=== PATIENT | female | born 1960 | race Hispanic/Latino ===

== ENCOUNTER 2018-10-25 09:41 | Inpatient (IN) | payer MEDICARE ==
[2018-10-25] MEDS ORDERED: NACL 0.9% 1000 ML IV ONE (10:13)
[2018-10-25] MEDS ORDERED: ATROVENT IH ONE (10:16)
[2018-10-25] MEDS ORDERED: PROVENTIL IH ONE (10:16)
--- NOTE | 2018-10-25 10:21 | Emergency Department Report ---
ED Shortness of Breath HPI - General Chief Complaint: Dyspnea/Respdistress Stated Complaint: SOB Time Seen by Provider: 10/25/18 10:05 Source: patient, family, EMS Mode of arrival: Stretcher Limitations: Physical Limitation - History of Present Illness Initial Comments: Patient is a 58 years old female with history of multiple sclerosis. Patient brought to the emergency room via EMS accompanied by her with a chief complaint of shortness of breath and cough for the last 6 days. Patient received albuterol and Solu-Medrol by EMS. Patient stated that she had similar symptoms last year when she was admitted to the hospital and had a diagnosis of pneumonia and COPD but she did not follow-up with a souvenir street vendor after that. Patient denied any fever or chills. Patient initial oxygen saturation was 88% on 2 L. MD Complaint: shortness of breath, cough - Related Data Home Medications Medication Instructions Recorded Confirmed Last Taken ALPRAZolam [Xanax TAB] 0.5 mg PO TID PRN 06/03/15 06/28/17 06/28/17 Amitriptyline [Elavil] 150 mg PO QHS 06/03/15 06/28/17 06/27/17 Atorvastatin Calcium [Lipitor] 80 mg PO DAILY 06/28/17 06/28/17 06/27/17 Baclofen [Lioresal] 20 mg PO TID 06/28/17 06/28/17 06/28/17 Desmopressin Acetate [Ddavp] 0.2 mg PO HS 06/28/17 06/28/17 06/27/17 Estradiol 0.5 mg PO DAILY 06/28/17 06/28/17 06/28/17 Gabapentin [Neurontin] 600 mg PO QID 06/28/17 06/28/17 06/28/17 HYDROcodone/APAP 5-325 [[place] 1 each PO BID PRN 06/28/17 06/28/17 Unknown 5-325 mg TAB] Olopatadine HCl [Pataday 0.2%] 1 drop OU DAILY 06/28/17 06/28/17 Unknown Promethazine [Phenergan] 25 mg PO TID PRN 06/28/17 06/28/17 Unknown QUEtiapine [SEROquel] 25 mg PO BID 06/28/17 06/28/17 06/28/17 Teriflunomide [Aubagio] 14 mg PO HS 06/28/17 06/28/17 06/27/17 medroxyPROGESTERone ACETATE 2.5 mg PO DAILY 06/28/17 06/28/17 06/28/17 [Provera] Previous Rx's Medication Instructions Recorded Last Taken Type Aspirin [Aspirin BABY CHEW TAB] 81 mg PO QDAY #30 tab.chew 06/05/15 06/28/17 Rx Carvedilol [Coreg] 3.125 mg PO BID #60 tablet 06/05/15 06/28/17 Rx Ticagrelor [Brilinta] 90 mg PO BID #60 tablet 06/05/15 06/28/17 Rx Prednisone [predniSONE 10 mg 10 mg PO .TAPER #1 tab.ds.pk 07/05/17 Unknown Rx (6-Day Pack, 21 Tabs)] Allergies Allergy/AdvReac Type Severity Reaction Status Date / Time ciprofloxacin Allergy Itching Verified 10/25/18 09:52 Penicillins Allergy Unknown Verified 06/03/15 21:45 oxycodone AdvReac Itching Verified 06/03/15 21:45 sulfur dioxide AdvReac Itching Verified 06/03/15 21:47 ED Review of Systems ROS: Stated complaint: SOB Other details as noted in HPI Comment: All other systems reviewed and negative Constitutional: denies: chills, fever Respiratory: cough, orthopnea, shortness of breath, SOB with exertion, SOB at rest, wheezing. denies: stridor Cardiovascular: denies: chest pain, palpitations Gastrointestinal: denies: abdominal pain, nausea, vomiting Musculoskeletal: denies: back pain Neurological: denies: headache, weakness ED Past Medical Hx - Past Medical History Previous Medical History?: Yes Hx Hypertension: No Hx Heart Attack/AMI: Yes (cardiac stent x2) Hx Congestive Heart Failure: No Hx Diabetes: No Hx Deep Vein Thrombosis: No Hx Pulmonary Embolism: No Hx Sickle Cell Disease: No Hx Arthritis: No Hx Seizures: No Hx Asthma: No Hx COPD: No Hx Tuberculosis: No Hx Dementia: No Hx HIV: No Additional medical history: MS - Surgical History Past Surgical History?: Yes Hx Coronary Stent: No Hx Open Heart Surgery: No Hx Pacemaker: No Hx Internal Defibrillator: No Hx Cholecystectomy: No Hx Appendectomy: No Hx Breast Surgery: No Additional Surgical History: breast implant; cardiac cath - Social History Smoking Status: Current Every Day Smoker Substance Use Type: None - Medications Home Medications: Home Medications Medication Instructions Recorded Confirmed Last Taken Type ALPRAZolam [Xanax TAB] 0.5 mg PO TID PRN 06/03/15 06/28/17 06/28/17 History Amitriptyline [Elavil] 150 mg PO QHS 06/03/15 06/28/17 06/27/17 History Aspirin [Aspirin BABY CHEW TAB] 81 mg PO QDAY #30 tab.chew 06/05/15 06/28/17 06/28/17 Rx Carvedilol [Coreg] 3.125 mg PO BID #60 tablet 06/05/15 06/28/17 06/28/17 Rx Ticagrelor [Brilinta] 90 mg PO BID #60 tablet 06/05/15 06/28/17 06/28/17 Rx Atorvastatin Calcium [Lipitor] 80 mg PO DAILY 06/28/17 06/28/17 06/27/17 History Baclofen [Lioresal] 20 mg PO TID 06/28/17 06/28/17 06/28/17 History Desmopressin Acetate [Ddavp] 0.2 mg PO HS 06/28/17 06/28/17 06/27/17 History Estradiol 0.5 mg PO DAILY 06/28/17 06/28/17 06/28/17 History Gabapentin [Neurontin] 600 mg PO QID 06/28/17 06/28/17 06/28/17 History HYDROcodone/APAP 5-325 [[place] 1 each PO BID PRN 06/28/17 06/28/17 Unknown History 5-325 mg TAB] Olopatadine HCl [Pataday 0.2%] 1 drop OU DAILY 06/28/17 06/28/17 Unknown History Promethazine [Phenergan] 25 mg PO TID PRN 06/28/17 06/28/17 Unknown History QUEtiapine [SEROquel] 25 mg PO BID 06/28/17 06/28/17 06/28/17 History Teriflunomide [Aubagio] 14 mg PO HS 06/28/17 06/28/17 06/27/17 History medroxyPROGESTERone ACETATE 2.5 mg PO DAILY 06/28/17 06/28/17 06/28/17 History [Provera] Prednisone [predniSONE 10 mg 10 mg PO .TAPER #1 tab.ds.pk 07/05/17 Unknown Rx (6-Day Pack, 21 Tabs)] ED Physical Exam - General Limitations: Physical Limitation General appearance: alert, in no apparent distress - Head Head exam: Present: atraumatic, normocephalic, normal inspection - Eye Eye exam: Present: normal appearance - ENT ENT exam: Present: normal exam, normal orophraynx, mucous membranes dry - Neck Neck exam: Present: normal inspection, full ROM. Absent: tenderness, meningismus, lymphadenopathy, thyromegaly - Respiratory Respiratory exam: Present: respiratory distress, wheezes, rales, rhonchi, decreased breath sounds, prolonged expiratory. Absent: stridor, accessory muscle use - Cardiovascular Cardiovascular Exam: Present: tachycardia - GI/Abdominal GI/Abdominal exam: Present: soft, normal bowel sounds. Absent: distended, tenderness, guarding, rebound, rigid, organomegaly, mass, bruit, pulsatile mass, hernia - Extremities Exam Extremities exam: Present: normal inspection, full ROM, normal capillary refill. Absent: pedal edema, calf tenderness - Back Exam Back exam: Present: normal inspection, full ROM. Absent: CVA tenderness (R), CVA tenderness (L), muscle spasm, paraspinal tenderness, vertebral tenderness - Neurological Exam Neurological exam: Present: alert, oriented X3, CN II-XII intact, motor sensory deficit (chronic due to multiple sclerosis) - Psychiatric Psychiatric exam: Present: normal mood - Skin Skin exam: Present: warm, intact, normal color ED Course Vital Signs 10/25/18 10/25/18 10/25/18 09:55 10:00 10:02 Temperature 98.2 F Pulse Rate 106 H 106 H 106 H Respiratory 27 H 26 H 27 H Rate Blood Pressure 100/58 Blood Pressure 102/74 [Left] O2 Sat by Pulse 89 90 Oximetry 10/25/18 10/25/18 10/25/18 10:03 10:30 11:00 Temperature Pulse Rate 100 H 95 H Respiratory 27 H 23 22 Rate Blood Pressure 86/59 86/59 Blood Pressure [Left] O2 Sat by Pulse 90 83 L 91 Oximetry ED Medical Decision Making - Lab Data Result diagrams: 10/25/18 10:22 09/10/19 10:22 - EKG Data -: EKG Interpreted by Me EKG shows normal: sinus rhythm Rate: normal - EKG Data Interpretation: no acute changes - Radiology Data Radiology results: report reviewed - Medical Decision Making Patient is a 58 years old female with history of multiple sclerosis. Patient brought to the emergency room via EMS accompanied by her with a chief complaint of shortness of breath and cough for the last 6 days. Patient received albuterol and Solu-Medrol by EMS. Patient stated that she had similar symptoms last year when she was admitted to the hospital and had a diagnosis of pneumonia and COPD but she did not follow-up with a souvenir street vendor after that. Patient denied any fever or chills. Patient initial oxygen saturation was 88% on 2 L. Patient started on BiPAP. Patient stated that she is feeling better. Labs reviewed and is unremarkable. Chest x-ray show pleural effusion. I discussed the patient was , he agreed to admit the patient to medical service. Critical Care Time: Yes Critical care time in (mins) excluding proc time.: 30 Critical care attestation.: If time is entered above; I have spent that time in minutes in the direct care of this critically ill patient, excluding procedure time. ED Disposition Clinical Impression: Multiple sclerosis, COPD with acute exacerbation, Bronchitis, Acute respiratory failure Disposition: -09 OP ADMIT IP TO THIS HOSP Is pt being admited?: Yes Condition: Stable Instructions: Chronic Obstructive Pulmonary Disease (ED), Chronic Bronchitis (ED)
[2018-10-25] MEDS ORDERED: NACL 0.9% 100 ML ONE (10:31)
[2018-10-25] MEDS: MAXIPIME/NS 1 GM/100 ML 1 GM/100 ML BAG IV SCH ×3 (10:43→19:45)
--- NOTE | 2018-10-25 10:51 | XRay Report ---
CHEST 1 VIEW INDICATION: SOB,COUGH. COMPARISON: 07/02/2017 FINDINGS: Support devices: None. Heart: Within normal limits. Lungs/Pleura: Small to medium right pleural effusion and compressive atelectasis at the right lung ba se is identified. The remainder the lungs are generally clear. No pneumothorax. Additional findings: None. IMPRESSION: Small to medium right pleural effusion. Signer Name: Toby Del Rio Jr, MD Signed: 10/25/2018 10:46 AM Workstation Name: [id number]
[2018-10-25 10:57] LABS: Basophils % (Auto) 0.2 % (0.0-1.8); Eosinophils # (Auto) 0.1 K/mm3 (0.0-0.4); Eosinophils % (Auto) 1.6 % (0.0-4.3); Hematocrit 36.3 % (30.3-42.9); Hemoglobin 12.5 gm/dl (10.1-14.3); Lymphocytes # (Auto) 1.6 K/mm3 (1.2-5.4); Lymphocytes % (Auto) 18.9 % (13.4-35.0); Mean Corpuscular HGB Conc 34 % (30-34); Mean Corpuscular Volume 90 fl (79-97); Monocytes # (Auto) 1.2 K/mm3 (0.0-0.8); Monocytes % (Auto) 14.2 % (0.0-7.3); Platelet Count 274 K/mm3 (140-440); Red Blood Count 4.05 M/mm3 (3.65-5.03); Red Cell Distribution Width 15.7 % (13.2-15.2)
[2018-10-25 11:16] LABS: Alanine Aminotransferase 15 units/L (7-56); BUN/Creatinine Ratio 28; Blood Urea Nitrogen 14 mg/dL (7-17); Calcium 8.6 mg/dL (8.4-10.2); Hemolysis Index 6
--- NOTE | 2018-10-25 16:13 | History and Physical Report ---
History of Present Illness Date of examination: 10/25/18 Date of admission: 10/25/18 11:40 Chief complaint: Increased shortness of breath for 6 days History of present illness: 58-year-old female with history of generalized anxiety disorder, depression, hypertension, which is a insufficiency, chronic pain comes in for increasing shortness of breath for the last 6 days. Increased wheezing. Patient not responding to nebulizer treatments at home. Cough or retro-firm mucoid to yellow sputum. No fever or chills. Patient had similar symptoms in June 2017. Patient still smokes a half a pack a day. Cough productive of yellow sputum Past Medical History Previous Medical History?: Yes Htn Heart Attack/AMI: Yes (cardiac stent x2) CAD Multiple Sclerosis ROBBIE HLD PN Bipolar Surgical History Past Surgical History?: Yes Breast implant; cardiac cath Social History Smoking Status: Current Every Day Smoker Substance Use Type: None Family History Htn Medications Home Medications: Home Medications Medication Instructions Recorded Confirmed Last Taken Type ALPRAZolam [Xanax TAB] 0.5 mg PO TID PRN 06/03/15 06/28/17 06/28/17 History Amitriptyline [Elavil] 150 mg PO QHS 06/03/15 06/28/17 06/27/17 History Aspirin [Aspirin BABY CHEW TAB] 81 mg PO QDAY #30 tab.chew 06/05/15 06/28/17 06/28/17 Rx Carvedilol [Coreg] 3.125 mg PO BID #60 tablet 06/05/15 06/28/17 06/28/17 Rx Ticagrelor [Brilinta] 90 mg PO BID #60 tablet 06/05/15 06/28/17 06/28/17 Rx Atorvastatin Calcium [Lipitor] 80 mg PO DAILY 06/28/17 06/28/17 06/27/17 History Baclofen [Lioresal] 20 mg PO TID 06/28/17 06/28/17 06/28/17 History Desmopressin Acetate [Ddavp] 0.2 mg PO HS 06/28/17 06/28/17 06/27/17 History Estradiol 0.5 mg PO DAILY 06/28/17 06/28/17 06/28/17 History Gabapentin [Neurontin] 600 mg PO QID 06/28/17 06/28/17 06/28/17 History HYDROcodone/APAP 5-325 [[place] 1 each PO BID PRN 06/28/17 06/28/17 Unknown History 5-325 mg TAB] Olopatadine HCl [Pataday 0.2%] 1 drop OU DAILY 06/28/17 06/28/17 Unknown History Promethazine [Phenergan] 25 mg PO TID PRN 06/28/17 06/28/17 Unknown History QUEtiapine [SEROquel] 25 mg PO BID 06/28/17 06/28/17 06/28/17 History Teriflunomide [Aubagio] 14 mg PO HS 06/28/17 06/28/17 06/27/17 History medroxyPROGESTERone ACETATE 2.5 mg PO DAILY 06/28/17 06/28/17 06/28/17 History [Provera] Prednisone [predniSONE 10 mg 10 mg PO .TAPER #1 tab.ds.pk 07/05/17 Unknown Rx (6-Day Pack, 21 Tabs)] Medications and Allergies Allergies Allergy/AdvReac Type Severity Reaction Status Date / Time ciprofloxacin Allergy Itching Verified 10/25/18 09:52 Penicillins Allergy Unknown Verified 06/03/15 21:45 oxycodone AdvReac Itching Verified 06/03/15 21:45 sulfur dioxide AdvReac Itching Verified 06/03/15 21:47 Home Medications Medication Instructions Recorded Confirmed Last Taken Type ALPRAZolam [Xanax TAB] 0.5 mg PO TID PRN 06/03/15 06/28/17 06/28/17 History Amitriptyline [Elavil] 150 mg PO QHS 06/03/15 06/28/17 06/27/17 History Aspirin [Aspirin BABY CHEW TAB] 81 mg PO QDAY #30 tab.chew 06/05/15 06/28/17 06/28/17 Rx Carvedilol [Coreg] 3.125 mg PO BID #60 tablet 06/05/15 06/28/17 06/28/17 Rx Ticagrelor [Brilinta] 90 mg PO BID #60 tablet 06/05/15 06/28/17 06/28/17 Rx Atorvastatin Calcium [Lipitor] 80 mg PO DAILY 06/28/17 06/28/17 06/27/17 History Baclofen [Lioresal] 20 mg PO TID 06/28/17 06/28/17 06/28/17 History Desmopressin Acetate [Ddavp] 0.2 mg PO HS 06/28/17 06/28/17 06/27/17 History Estradiol 0.5 mg PO DAILY 06/28/17 06/28/17 06/28/17 History Gabapentin [Neurontin] 600 mg PO QID 06/28/17 06/28/17 06/28/17 History HYDROcodone/APAP 5-325 [[place] 1 each PO BID PRN 06/28/17 06/28/17 Unknown History 5-325 mg TAB] Olopatadine HCl [[place] 0.2%] 1 drop OU DAILY 06/28/17 06/28/17 Unknown History Promethazine [Phenergan] 25 mg PO TID PRN 06/28/17 06/28/17 Unknown History QUEtiapine [SEROquel] 25 mg PO BID 06/28/17 06/28/17 06/28/17 History Teriflunomide [Aubagio] 14 mg PO HS 06/28/17 06/28/17 06/27/17 History medroxyPROGESTERone ACETATE 2.5 mg PO DAILY 06/28/17 06/28/17 06/28/17 History [Provera] Prednisone [predniSONE 10 mg 10 mg PO .TAPER #1 tab.ds.pk 07/05/17 Unknown Rx (6-Day Pack, 21 Tabs)] Active Meds: Active Medications Cefepime HCl (Maxipime/Ns 1 Gm/100 Ml) 1 gm in 100 mls @ 200 mls/hr IV Q8H [facility]; Protocol Last Admin: 10/25/18 15:38 Dose: Not Given Documented by: Review of Systems All systems: negative Constitutional: no weight loss, no weight gain, no fever, no chills, no anorexia, no fatigue Ears, nose, mouth and throat: no ear pain, no ear discharge, no tinnitis, no decreased hearing, no nose pain, no nasal congestion Breasts: deferred Cardiovascular: shortness of breath, dyspnea on exertion, no chest pain, no orthopnea Respiratory: cough, cough with sputum, shortness of breath, dyspnea on exertion, congestion, wheezing Gastrointestinal: no abdominal pain, no nausea, no vomiting, no diarrhea, no constipation, no change in bowel habits, no hematemesis, no coffee ground emesis Genitourinary Female: no dysuria, no urinary frequency, no urgency Rectal: no pain Musculoskeletal: no neck stiffness, no neck pain, no shooting arm pain, no arm numbness/tingling, no low back pain, no shooting leg pain, no leg numbness/tingling, no redness of joints Integumentary: no rash, no pruritis, no redness, no sores, no wounds Neurological: no head injury, no seizures, no syncope Psychiatric: no anxiety, no memory loss Endocrine: no cold intolerance, no heat intolerance, no polyphagia, no excessive thirst Hematologic/Lymphatic: no easy bruising, no easy bleeding Allergic/Immunologic: no urticaria, no allergic rhinitis, no wheezing Exam - Physical Exam Narrative exam: Patient lying in bed uncomfortable - Constitutional Vitals: Temp Pulse Resp BP Pulse Ox 98.2 F 79 18 109/74 92 10/25/18 10:02 10/25/18 15:01 10/25/18 15:01 10/25/18 15:01 10/25/18 15:01 General appearance: Present: severe distress - EENT Eyes: Present: PERRL ENT: hearing intact, clear oral mucosa - Neck Neck: Present: supple, normal ROM - Respiratory Respiratory effort: normal Respiratory: bilateral: CTA, diminished, rhonchi, wheezing - Cardiovascular Heart rate: 78 Rhythm: regular Heart Sounds: Present: S1 & S2. Absent: rub, click - Extremities Extremities: no ischemia, pulses intact, pulses symmetrical Extremity abnormal: cyanosis Peripheral Pulses: within normal limits - Abdominal General gastrointestinal: Present: soft, non-tender, non-distended, normal bowel sounds Female genitourinary: Present: normal - Rectal Rectal Exam: deferred - Integumentary Integumentary: Present: clear, warm, dry - Musculoskeletal Musculoskeletal: gait normal, strength equal bilaterally - Psychiatric Psychiatric: appropriate mood/affect, intact judgment & insight - Neurologic Neurologic: CNII-XII intact, moves all extremities - Allied Health Allied health notes reviewed: nursing, case management Results - Labs CBC & Chem 7: 10/25/18 10:22 10/25/18 10:22 Labs: Laboratory Last Values WBC 8.3 K/mm3 (4.5-11.0) 10/25/18 10:22 RBC 4.05 M/mm3 (3.65-5.03) 10/25/18 10:22 Hgb 12.5 gm/dl (10.1-14.3) 10/25/18 10: Hct 36.3 % (30.3-42.9) 10/25/18 10: MCV 90 fl (79-97) 10/25/18 10: MCH 31 pg (28-32) 10/25/18 10: MCHC 34 % (30-34) 10/25/18 10:22 RDW 15.7 % (13.2-15.2) H 10/25/18 10:22 Plt Count 274 K/mm3 (140-440) 10/25/18 10: Lymph % (Auto) 18.9 % (13.4-35.0) 10/25/18 10: [place] % (Auto) 14.2 % (0.0-7.3) H 10/25/18 10:22 Eos % (Auto) 1.6 % (0.0-4.3) 10/25/18 10:22 Baso % (Auto) 0.2 % (0.0-1.8) 10/25/18 10: Lymph # 1.6 K/mm3 (1.2-5.4) 10/25/18 10: [place] # 1.2 K/mm3 (0.0-0.8) H 10/25/18 10:22 Eos # 0.1 K/mm3 (0.0-0.4) 10/25/18 10: Baso # 0.0 K/mm3 (0.0-0.1) 10/25/18 10:22 Seg Neutrophils % 65.1 % (40.0-70.0) 10/25/18 10: Seg Neutrophils # 5.4 K/mm3 (1.8-7.7) 10/25/18 10:22 POC ABG pH 7.278 (7.35-7.45) L 10/25/18 10:59 POC ABG pCO2 45.4 (35-45) H 10/25/18 10:59 POC ABG pO2 89 (80-105) 10/25/18 10:59 POC ABG HCO3 21.2 (22-26 mml/L) 10/25/18 10:59 POC ABG Total CO2 23 (23-27mmol/L) 10/25/18 10:59 POC ABG O2 Sat 96 10/25/18 10:59 POC ABG Base Excess -6 ((-2) - (+3)mmol/L) 10/25/18 10:59 50 % 10/25/18 10:59 Sodium 131 mmol/L (137-145) L 10/25/18 10:22 Potassium 3.6 mmol/L (3.6-5.0) 10/25/18 10:22 Chloride 96.5 mmol/L (98-107) L 10/25/18 10:22 Carbon Dioxide 22 mmol/L (22-30) 10/25/18 10:22 16 mmol/L 10/25/18 10:22 BUN 14 mg/dL (7-17) 10/25/18 10:22 0.5 mg/dL (0.7-1.2) L 10/25/18 10:22 Estimated GFR > 60 ml/min 10/25/18 10:22 28 % 10/25/18 10:22 Glucose 134 mg/dL (65-100) H 10/25/18 10:22 Lactic Acid 1.50 mmol/L (0.7-2.0) 10/25/18 10:22 Calcium 8.6 mg/dL (8.4-10.2) 10/25/18 10:22 0.60 mg/dL (0.1-1.2) 10/25/18 10:22 AST 18 units/L (5-40) 10/25/18 10:22 ALT 15 units/L (7-56) 10/25/18 10:22 62 units/L (35-129) 10/25/18 10:22 < 0.010 ng/mL (0.00-0.029) 10/25/18 10:22 < 0.010 ng/mL (0.00-0.029) 10/25/18 10:22 NT-Pro-B Natriuret Pep 100.2 pg/mL (0-900) 10/25/18 10:22 5.3 g/dL (6.3-8.2) L 10/25/18 10:22 3.0 g/dL (3.9-5) L 10/25/18 10:22 1.3 % 10/25/18 10:22 Short CBC 10/25/18 Range/Units 10:22 WBC 8.3 (4.5-11.0) K/mm3 Hgb 12.5 (10.1-14.3) gm/dl Hct 36.3 (30.3-42.9) % Plt Count 274 (140-440) K/mm3 [facility] 10/25/18 10:22 Sodium 131 L Potassium 3.6 Chloride 96.5 L Carbon Dioxide 22 BUN 14 Creatinine 0.5 L Glucose 134 H Calcium 8.6 Cardiac Enzymes 10/25/18 10/25/18 Range/Units 10:22 10:22 Troponin T < 0.010 < 0.010 (0.00-0.029) ng/mL Liver Function 10/25/18 Range/Units 10:22 Total Bilirubin 0.60 (0.1-1.2) mg/dL AST 18 (5-40) units/L ALT 15 (7-56) units/L Alkaline Phosphatase 62 (35-129) units/L Albumin 3.0 L (3.9-5) g/dL Short CBC 10/25/18 Range/Units 10:22 WBC 8.3 (4.5-11.0) K/mm3 Hgb 12.5 (10.1-14.3) gm/dl Hct 36.3 (30.3-42.9) % Plt Count 274 (140-440) K/mm3 [facility] 10/25/18 10:22 Sodium 131 L Potassium 3.6 Chloride 96.5 L Carbon Dioxide 22 BUN 14 Creatinine 0.5 L Glucose 134 H Calcium 8.6 Cardiac Enzymes 10/25/18 10/25/18 Range/Units 10:22 10:22 Troponin T < 0.010 < 0.010 (0.00-0.029) ng/mL Liver Function 10/25/18 Range/Units 10:22 Total Bilirubin 0.60 (0.1-1.2) mg/dL AST 18 (5-40) units/L ALT 15 (7-56) units/L Alkaline Phosphatase 62 (35-129) units/L Albumin 3.0 L (3.9-5) g/dL - Imaging and Cardiology EKG: report reviewed (normal sinus rhythm heart rate of 96/m no acute ST-T wave changes) Chest x-ray: report reviewed Imaging and Cardiology: Chest x-ray Small to medium right pleural effusion Assessment and Plan Advance Directives: Yes (full code) VTE prophylaxis?: Chemical Plan of care discussed with patient/family: Yes - Patient Problems (1) Acute respiratory failure with hypoxia Current Visit: Yes Status: Acute Plan to address problem: Patient was hypoxic at the time of admission which persisted ABG done Continue IV Solu-Medrol IV antibiotics and duo nebulizers around the clock BiPAP if necessary Intubation if necessary (2) COPD with acute exacerbation Current Visit: Yes Status: Acute Plan to address problem: Continue IV antibiotics, IV Solu-Medrol and nebulizer treatments [id number] and when necessary. BiPAP as necessary Intubation if necessary Patient sats are better of emergency room admission (3) Hypertension Current Visit: Yes Status: Chronic Qualifiers: Hypertension type: essential hypertension Qualified Code(s): I10 - Essential (primary) hypertension Plan to address problem: well-controlled Continue Coreg 3.125 twice a day and other blood pressure medications (4) Depression Current Visit: Yes Status: Chronic Qualifiers: Depression Type: unspecified Qualified Code(s): F32.9 - Major depressive disorder, single episode, unspecified Plan to address problem: Continue amitriptyline Quetiapine (5) Peripheral neuropathy Current Visit: Yes Status: Chronic Qualifiers: Peripheral neuropathy type: polyneuropathy, unspecified Qualified Code(s): G62.9 - Polyneuropathy, unspecified Plan to address problem: Continue gabapentin (6) Coronary artery disease Current Visit: Yes Status: Chronic Qualifiers: Coronary Disease-Associated Artery/Lesion type: [place] artery [place] vs. transplanted heart: [place] heart Associated angina: without angina Qualified Code(s): I25.10 - Atherosclerotic heart disease of [place] coronary artery without angina pectoris Plan to address problem: Cot iBrilinta 90 mg twice a day (7) Hyperlipidemia Current Visit: Yes Status: Chronic Qualifiers: Hyperlipidemia type: mixed hyperlipidemia Qualified Code(s): E78.2 - Mixed hyperlipidemia Plan to address problem: Continue statins (8) Multiple sclerosis Current Visit: Yes Status: Chronic Plan to address problem: Patient not on any medications for multiple sclerosis We'll get physical therapy involved (9) DVT prophylaxis Current Visit: No Status: Acute Plan to address problem: On Lovenox and GI prophylaxis
[2018-10-25] MEDS ORDERED: PHENERGAN PO PRN (16:43)
[2018-10-25] MEDS ORDERED: ESTRADIOL 0.5 MG PO SCH (16:45)
[2018-10-25] MEDS ORDERED: NON-FORMULARY (Atorvastatin Calcium [Lipitor] 40 MG) PO SCH (16:45)
[2018-10-25] MEDS ORDERED: ZOFRAN IV PRN (16:46)
[2018-10-25] MEDS ORDERED: PROVENTIL IH PRN (16:49)
[2018-10-25] MEDS ORDERED: SOLU-Medrol IV SCH (17:00)
[2018-10-25] MEDS ORDERED: NON-FORMULARY (Gabapentin [Neurontin] 600 MG) PO SCH (18:00)
[2018-10-25] MEDS: BABY ASPIRIN PO SCH (18:19)
[2018-10-25] MEDS: SOLU-Medrol IV SCH (18:28)
[2018-10-25] MEDS: DUONEB *Not for PRN Use IH SCH (20:05)
[2018-10-25] MEDS ORDERED: PEPCID IV SCH (22:00)
[2018-10-25] MEDS ORDERED: AMITRIPTYLINE 150 MG PO SCH (22:00)
[2018-10-25] MEDS ORDERED: DESMOPRESSIN ACETATE 0.2 MG PO SCH (22:00)
[2018-10-25] MEDS ORDERED: TERIFLUNOMIDE 14 MG PO SCH (22:00)
[2018-10-25] MEDS: XANAX PO PRN (22:44)
[2018-10-25] MEDS: ELAVIL PO SCH (22:44)
[2018-10-25] MEDS: LIORESAL PO SCH (22:44)
[2018-10-25] MEDS: BRILINTA PO SCH (22:44)
[2018-10-25] MEDS: NEURONTIN PO SCH (22:45)
[2018-10-25] MEDS: COREG PO SCH (22:45)
[2018-10-25] MEDS: SODIUM CHLORIDE FLUSH SYRINGE 10 ML IV SCH (22:48)
[2018-10-25] MEDS: PROVERA PO SCH (22:49)
[2018-10-25] MEDS: ESTRACE PO SCH (22:50)
[2018-10-25] MEDS: DDAVP PO SCH (23:56)
[2018-10-26] MEDS: SODIUM CHLORIDE FLUSH SYRINGE 10 ML IV PRN ×2 (03:56→05:12)
[2018-10-26] MEDS: SOLU-Medrol IV SCH ×3 (03:56→22:12)
[2018-10-26] MEDS: MAXIPIME/NS 1 GM/100 ML 1 GM/100 ML BAG IV SCH ×3 (05:11→18:19)
[2018-10-26 06:35] LABS: Basophils % (Auto) 0.1 % (0.0-1.8); Eosinophils % (Auto) 0.1 % (0.0-4.3); Hematocrit 35.8 % (30.3-42.9); Hemoglobin 11.9 gm/dl (10.1-14.3); Lymphocytes # (Auto) 1.3 K/mm3 (1.2-5.4); Lymphocytes % (Auto) 14.3 % (13.4-35.0); Mean Corpuscular HGB Conc 33 % (30-34); Mean Corpuscular Volume 92 fl (79-97); Monocytes # (Auto) 0.7 K/mm3 (0.0-0.8); Monocytes % (Auto) 7.8 % (0.0-7.3); Platelet Count 280 K/mm3 (140-440); Red Cell Distribution Width 16.3 % (13.2-15.2)
[2018-10-26 06:46] LABS: BUN/Creatinine Ratio 28; Blood Urea Nitrogen 11 mg/dL (7-17); Calcium 8.4 mg/dL (8.4-10.2)
[2018-10-26 06:47] LABS: Alanine Aminotransferase 19 units/L (7-56); Albumin 2.4 g/dL (3.9-5); Hemolysis Index 13
[2018-10-26] MEDS: DUONEB *Not for PRN Use IH SCH ×4 (08:21→21:16)
[2018-10-26] MEDS: DILAUDID IV PRN ×3 (09:00→18:20)
[2018-10-26] MEDS: LIORESAL PO SCH ×3 (09:15→19:17)
[2018-10-26] MEDS ORDERED: SOLU-Medrol IV SCH (09:25)
[2018-10-26] MEDS: BABY ASPIRIN PO SCH (10:07)
[2018-10-26] MEDS: XANAX PO PRN ×3 (10:07→22:12)
[2018-10-26] MEDS: COREG PO SCH ×2 (10:07→22:12)
[2018-10-26] MEDS: BRILINTA PO SCH ×2 (10:07→22:12)
[2018-10-26] MEDS: HABITROL TD SCH (10:08)
[2018-10-26] MEDS: PEPCID PO SCH ×2 (10:08→22:12)
[2018-10-26] MEDS: NEURONTIN PO SCH (10:28)
[2018-10-26] MEDS: PROVERA PO SCH (10:45)
[2018-10-26] MEDS: ESTRACE PO SCH (10:46)
[2018-10-26] MEDS: SODIUM CHLORIDE FLUSH SYRINGE 10 ML IV SCH ×2 (10:48→22:21)
[2018-10-26] MEDS ORDERED: NEURONTIN PO PRN (11:00)
[2018-10-26 11:22] LABS: Bacteria,Urine 1+ /HPF (Negative); Bilirubin,Urine NEG (Negative); Blood,Urine NEG (Negative); Color,Urine Straw (Yellow); Protein,Urine <15 mg/dL mg/dL (Negative); Urobilinogen,Urine < 2.0 mg/dL (<2.0)
[2018-10-26] MEDS: OLOPATADINE HCL OU SCH (11:34)
[2018-10-26] MEDS: ABILIFY PO SCH (12:28)
--- NOTE | 2018-10-26 14:28 | Progress Note ---
Assessment and Plan Assessment and plan: (1) Acute respiratory failure with hypoxia - Per pulmonology Solu-Medrol was decreased to 40 mg IV 3 times a day (2) COPD with acute exacerbation; and is being managed according to COPD protocol Patient's delirius; likely due to steroid induced. Recent refused to be examined by me but was exmined by pulmonary Paranoia, depression; will get mental health evaluation. History Interval history: Patient was seen this morning, and patient refused to be examined. Hospitalist Physical - Physical exam Narrative exam: Patient refused to be examined and I didn't examine her. - Constitutional Vitals: Temp Pulse Resp BP Pulse Ox 97.4 F L 84 20 108/69 97 10/26/18 07:22 10/26/18 11:44 10/26/18 11:44 10/26/18 07:22 10/26/18 08:21 General appearance: Present: severe distress Results - Labs CBC & Chem 7: 10/26/18 05:07 10/26/18 05:07 Labs: Laboratory Last Values WBC 9.2 K/mm3 (4.5-11.0) 10/26/18 05:07 RBC 3.90 M/mm3 (3.65-5.03) 10/26/18 05:07 Hgb 11.9 gm/dl (10.1-14.3) 10/26/18 05:07 Hct 35.8 % (30.3-42.9) 10/26/18 05:07 MCV 92 fl (79-97) 10/26/18 05:07 MCH 31 pg (28-32) 10/26/18 05:07 MCHC 33 % (30-34) 10/26/18 05:07 RDW 16.3 % (13.2-15.2) H 10/26/18 05:07 Plt Count 280 K/mm3 (140-440) 10/26/18 05:07 Lymph % (Auto) 14.3 % (13.4-35.0) 10/26/18 05:07 [place] % (Auto) 7.8 % (0.0-7.3) H 10/26/18 05:07 Eos % (Auto) 0.1 % (0.0-4.3) 10/26/18 05:07 Baso % (Auto) 0.1 % (0.0-1.8) 10/26/18 05:07 Lymph # 1.3 K/mm3 (1.2-5.4) 10/26/18 05:07 [place] # 0.7 K/mm3 (0.0-0.8) 10/26/18 05:07 Eos # 0.0 K/mm3 (0.0-0.4) 10/26/18 05:07 Baso # 0.0 K/mm3 (0.0-0.1) 10/26/18 05:07 Seg Neutrophils % 77.7 % (40.0-70.0) H 10/26/18 05:07 Seg Neutrophils # 7.1 K/mm3 (1.8-7.7) 10/26/18 05:07 POC ABG pH 7.278 (7.35-7.45) L 10/25/18 10:59 POC ABG pCO2 45.4 (35-45) H 10/25/18 10:59 POC ABG pO2 89 (80-105) 10/25/18 10:59 POC ABG HCO3 21.2 (22-26 mml/L) 10/25/18 10:59 POC ABG Total CO2 23 (23-27mmol/L) 10/25/18 10:59 POC ABG O2 Sat 96 10/25/18 10:59 POC ABG Base Excess -6 ((-2) - (+3)mmol/L) 10/25/18 10:59 50 % 10/25/18 10:59 Sodium 137 mmol/L (137-145) 10/26/18 05:07 Potassium 3.5 mmol/L (3.6-5.0) L 10/26/18 05:07 Chloride 104.6 mmol/L (98-107) 10/26/18 05:07 Carbon Dioxide 18 mmol/L (22-30) L 10/26/18 05:07 18 mmol/L 10/26/18 05:07 BUN 11 mg/dL (7-17) 10/26/18 05:07 0.4 mg/dL (0.7-1.2) L 10/26/18 05:07 Estimated GFR > 60 ml/min 10/26/18 05:07 28 % 10/26/18 05:07 Glucose 127 mg/dL (65-100) H 10/26/18 05:07 POC Glucose 162 (70-105) H 10/25/18 20:25 5.4 % (4-6) 10/25/18 17:20 Lactic Acid 1.50 mmol/L (0.7-2.0) 10/25/18 10:22 Calcium 8.4 mg/dL (8.4-10.2) 10/26/18 05:07 0.40 mg/dL (0.1-1.2) 10/26/18 05:07 AST 24 units/L (5-40) 10/26/18 05:07 ALT 19 units/L (7-56) 10/26/18 05:07 60 units/L (35-129) 10/26/18 05:07 < 0.010 ng/mL (0.00-0.029) 10/25/18 10:22 < 0.010 ng/mL (0.00-0.029) 10/25/18 10:22 NT-Pro-B Natriuret Pep 100.2 pg/mL (0-900) 10/25/18 10:22 5.6 g/dL (6.3-8.2) L 10/26/18 05:07 2.4 g/dL (3.9-5) L 10/26/18 05:07 0.8 % 10/26/18 05:07 Straw (Yellow) 10/26/18 10:57 Clear (Clear) 10/26/18 10:57 7.0 (5.0-7.0) 10/26/18 10:57 Ur Specific [place] 1.005 (1.003-1.030) 10/26/18 10:57 <15 mg/dl mg/dL (Negative) 10/26/18 10:57 Neg mg/dL (Negative) 10/26/18 10:57 Neg mg/dL (Negative) 10/26/18 10:57 Neg (Negative) 10/26/18 10:57 Neg (Negative) 10/26/18 10:57 Neg (Negative) 10/26/18 10:57 < 2.0 mg/dL (<2.0) 10/26/18 10:57 Ur Leukocyte Esterase Tr (Negative) 10/26/18 10:57 1.0 /HPF (0.0-6.0) 10/26/18 10:57 3.0 /HPF (0.0-6.0) 10/26/18 10:57 U Epithel Cells (Auto) < 1.0 /HPF (0-13.0) 10/26/18 10:57 1+ /HPF (Negative) 10/26/18 10:57 Active Medications - Current Medications Current Medications: Generic Name Dose Route Start Last Admin Trade Name Freq PRN Reason Stop Dose Admin Acetaminophen 650 mg 10/25/18 16:46 Tylenol PO Q4H PRN Pain MILD(1-3)/Fever >100.5/LUQUE Acetaminophen/Hydrocodone Bitart 1 each 10/25/18 16:43 [place] 5/325 PO BID PRN Pain Albuterol 2.5 mg 10/25/18 16:49 Proventil IH Q4HRT PRN Shortness Of Breath Albuterol/Ipratropium 1 ampul 10/25/18 20:00 10/26/18 11:33 Duoneb *Not For Prn Use* IH 1 ampul QIDRT ROBERTH Administration Alprazolam 0.5 mg 10/25/18 16:43 10/26/18 10:07 Xanax PO 0.5 mg TID PRN Administration Anxiety Amitriptyline HCl 150 mg 10/25/18 22:00 10/25/18 22:44 Elavil PO 150 mg QHS ROBERTH Administration Aripiprazole 10 mg 10/26/18 11:00 10/26/18 12:28 Abilify PO 10 mg QDAY ROBERTH Administration Aspirin 81 mg 10/25/18 18:00 10/26/18 10:07 Baby Aspirin PO 81 mg QDAY ROBERTH Administration Atorvastatin Calcium 40 mg 10/25/18 22:00 10/25/18 22:44 Lipitor PO 40 mg QHS ROBERTH Administration Baclofen 20 mg 10/25/18 20:00 10/26/18 09:15 Lioresal PO 20 mg TID ROBERTH Administration Carvedilol 3.125 mg 10/25/18 22:00 10/26/18 10:07 Coreg PO 3.125 mg BID ROBERTH Administration Desmopressin Acetate 0.2 mg 10/25/18 22:00 10/25/18 23:56 Ddavp PO Not Given HS ROBERTH Estradiol 0.5 mg 10/25/18 20:00 10/26/18 10:46 Estrace PO 0.5 mg QDAY ROBERTH Administration Famotidine 20 mg 10/26/18 10:00 10/26/18 10:08 Pepcid PO 20 mg BID ROBERTH Administration Gabapentin 600 mg 10/26/18 11:00 Neurontin PO QID PRN Pain, Moderate (4-6) Hydromorphone HCl 0.5 mg 10/25/18 16:46 Dilaudid IV Q3H PRN Pain , Severe (7-10) Cefepime HCl 1 gm in 100 mls @ 200 mls/hr 10/25/18 11:20 10/26/18 10:47 Maxipime/Ns 1 Gm/100 Ml IV 200 mls/hr Q8H ROBERTH Administration Protocol Medroxyprogesterone Acetate 2.5 mg 10/25/18 20:00 10/26/18 10:45 Provera PO 2.5 mg DAILY ROBERTH Administration Methylprednisolone Sodium Succinate 40 mg 10/26/18 12:00 10/26/18 12:28 Solu-Medrol IV 40 mg Q8H ROBERTH Administration Nicotine 14 mg 10/26/18 10:00 10/26/18 10:08 Habitrol TD 14 mg QDAY ROBERTH Administration Ondansetron HCl 4 mg 10/25/18 16:46 Zofran IV Q8H PRN Nausea And Vomiting Promethazine HCl 25 mg 10/25/18 16:43 Phenergan PO TID PRN Nausea Sodium Chloride 10 ml 10/25/18 22:00 10/26/18 10:48 Sodium Chloride Flush Syringe 10 Ml IV 10 ml BID ROBERTH Administration Sodium Chloride 10 ml 10/25/18 16:46 10/26/18 05:12 Sodium Chloride Flush Syringe 10 Ml IV 10 ml PRN PRN Administration LINE FLUSH Ticagrelor 90 mg 10/25/18 22:00 10/26/18 10:07 Brilinta PO 90 mg BID ROBERTH Administration
[2018-10-26] MEDS: NORCO 5/325 PO PRN (15:38)
--- NOTE | 2018-10-26 19:57 | Consultation ---
History of Present Illness Consult date: 10/26/18 Reason for consult: dyspnea, cough History of present illness: PULMONARY AND CRITICAL CARE CONSULTATION DR. NARAYAN THANK YOU FOR ASKING US TO PARTICIPATE IN THE CARE OF THIS PATIENT. 58-year-old female with history of generalized anxiety disorder, depression, hypertension, which is a insufficiency, chronic pain comes in for increasing shortness of breath for the last 6 days. Increased wheezing. Patient not responding to nebulizer treatments at home. Cough or retro-firm mucoid to yellow sputum. No fever or chills. Patient had similar symptoms in June 2017. Patient still smokes a half a pack a day. Counselled to stop smoking. Cough productive of yellow sputum. Drinks alcohol at times. Denies drug abuse. and has no children. Worked in [employer] before disabled or retired. Patient confused and combative. Patients attributing to high dose s teroids. Reducing steroid dose to 40 mg I/V q 8 hours. Taper steroids furthur tomorrow. Patient is on high flow O2 8 ltres and O2 saturation 94%. Chest xray reported small to medium pleural effusion. Obtaining ultrasound of chest. Medications and Allergies Allergies Allergy/AdvReac Type Severity Reaction Status Date / Time ciprofloxacin Allergy Itching Verified 10/25/18 09:52 Penicillins Allergy Unknown Verified 06/03/15 21:45 oxycodone AdvReac Itching Verified 06/03/15 21:45 sulfur dioxide AdvReac Itching Verified 06/03/15 21:47 Home Medications Medication Instructions Recorded Confirmed Last Taken Type ALPRAZolam [Xanax TAB] 0.5 mg PO TID PRN 06/03/15 10/25/18 10/25/18 History Amitriptyline [Elavil] 150 mg PO QHS 06/03/15 10/25/18 10/24/18 History Aspirin [Aspirin BABY CHEW TAB] 81 mg PO QDAY #30 tab.chew 06/05/15 10/25/18 10/25/18 Rx Carvedilol [Coreg] 3.125 mg PO BID #60 tablet 06/05/15 10/25/18 10/25/18 Rx Ticagrelor [Brilinta] 90 mg PO BID #60 tablet 06/05/15 10/25/18 10/25/18 Rx Atorvastatin Calcium [Lipitor] 80 mg PO DAILY 06/28/17 10/25/18 10/24/18 History Baclofen [Lioresal] 20 mg PO TID 06/28/17 10/25/18 10/25/18 History 20 mg Desmopressin Acetate [Ddavp] 0.2 mg PO HS 06/28/17 10/25/18 10/24/18 History Estradiol 0.5 mg PO DAILY 06/28/17 10/25/18 10/25/18 History Gabapentin [Neurontin] 600 mg PO QID PRN 06/28/17 10/25/18 10/25/18 History HYDROcodone/APAP 5-325 [[place] 1 each PO BID PRN 06/28/17 10/25/18 10/25/18 History 5-325 mg TAB] Promethazine [Phenergan] 25 mg PO TID PRN 06/28/17 10/25/18 Unknown History medroxyPROGESTERone ACETATE 2.5 mg PO DAILY 06/28/17 10/25/18 10/25/18 History [Provera] ARIPiprazole [Abilify] 10 mg PO DAILY 10/25/18 10/25/18 10/25/18 History Interferon Beta-1A/Albumin [Rebif 44 mcg SQ 3XW 10/25/18 10/25/18 10/25/18 History 44 Mcg/0.5 ml Syringe] Sennosides [Senokotxtra] 17.2 mg PO HS 10/25/18 10/25/18 10/24/18 History Active Meds: Active Medications Acetaminophen (Tylenol) 650 mg PO Q4H PRN PRN Reason: Pain MILD(1-3)/Fever >100.5/LUQUE Acetaminophen/Hydrocodone Bitart ([place] 5/325) 1 each PO BID PRN PRN Reason: Pain Last Admin: 10/26/18 15:38 Dose: 1 each Documented by: Albuterol (Proventil) 2.5 mg IH Q4HRT PRN PRN Reason: Shortness Of Breath Albuterol/Ipratropium (Duoneb *Not For Prn Use*) 1 ampul IH QIDRT ROBERTH Last Admin: 10/26/18 16:43 Dose: 1 ampul Documented by: Alprazolam (Xanax) 0.5 mg PO TID PRN PRN Reason: Anxiety Last Admin: 10/26/18 16:02 Dose: 0.5 mg Documented by: Amitriptyline HCl (Elavil) 150 mg PO QHS [facility] Last Admin: 10/25/18 22:44 Dose: 150 mg Documented by: Aripiprazole (Abilify) 10 mg PO QDAY [facility] Last Admin: 10/26/18 12:28 Dose: 10 mg Documented by: Aspirin (Baby Aspirin) 81 mg PO QDAY [facility] Last Admin: 10/26/18 10:07 Dose: 81 mg Documented by: Atorvastatin Calcium (Lipitor) 40 mg PO QHS [facility] Last Admin: 10/25/18 22:44 Dose: 40 mg Documented by: Baclofen (Lioresal) 20 mg PO TID [facility] Last Admin: 10/26/18 19:17 Dose: 20 mg Documented by: Carvedilol (Coreg) 3.125 mg PO BID [facility] Last Admin: 10/26/18 10:07 Dose: 3.125 mg Documented by: Desmopressin Acetate (Ddavp) 0.2 mg PO [facility] Last Admin: 10/25/18 23:56 Dose: Not Given Documented by: Estradiol (Estrace) 0.5 mg PO QDAY [facility] Last Admin: 10/26/18 10:46 Dose: 0.5 mg Documented by: Famotidine (Pepcid) 20 mg PO BID [facility] Last Admin: 10/26/18 10:08 Dose: 20 mg Documented by: Gabapentin (Neurontin) 600 mg PO QID PRN PRN Reason: Pain, Moderate (4-6) Hydromorphone HCl (Dilaudid) 0.5 mg IV Q3H PRN PRN Reason: Pain , Severe (7-10) Last Admin: 10/26/18 18:20 Dose: 0.5 mg Documented by: Cefepime HCl (Maxipime/Ns 1 Gm/100 Ml) 1 gm in 100 mls @ 200 mls/hr IV Q8H [facility]; Protocol Last Admin: 10/26/18 18:19 Dose: 200 mls/hr Documented by: Medroxyprogesterone Acetate (Provera) 2.5 mg PO DAILY [facility] Last Admin: 10/26/18 10:45 Dose: 2.5 mg Documented by: Methylprednisolone Sodium Succinate (Solu-Medrol) 40 mg IV Q8H [facility] Last Admin: 10/26/18 12:28 Dose: 40 mg Documented by: Nicotine (Habitrol) 14 mg TD QDAY [facility] Last Admin: 10/26/18 10:08 Dose: 14 mg Documented by: Ondansetron HCl (Zofran) 4 mg IV Q8H PRN PRN Reason: Nausea And Vomiting Promethazine HCl (Phenergan) 25 mg PO TID PRN PRN Reason: Nausea Sodium Chloride (Sodium Chloride Flush Syringe 10 Ml) 10 ml IV BID [facility] Last Admin: 10/26/18 10:48 Dose: 10 ml Documented by: Sodium Chloride (Sodium Chloride Flush Syringe 10 Ml) 10 ml IV PRN PRN PRN Reason: LINE FLUSH Last Admin: 10/26/18 05:12 Dose: 10 ml Documented by: Ticagrelor (Brilinta) 90 mg PO BID [facility] Last Admin: 10/26/18 10:07 Dose: 90 mg Documented by: Review of Systems All systems: negative Physical Examination Vital signs: Vital Signs Pulse Resp 106 H 27 H 10/25/18 09:55 10/25/18 09:55 General appearance: no acute distress, alert Eyes: non-icteric ENT: oropharynx moist Neck: supple, no JVD Ascultation: Bilateral: other (Prolonged expiratory phase.) Cardiovascular: regular rate and rhythm Gastrointestinal: normoactive bowel sounds, soft Integumentary: normal Extremities: no cyanosis, no edema Musculoskeletal: no deformities unable to assess anxious (Agitated and confused.), other Results - Laboratory Findings CBC and BMP: 10/26/18 05:07 10/26/18 05:07 ABG POC ABG pH 7.278 (7.35-7.45) L 10/25/18 10:59 POC ABG pCO2 45.4 (35-45) H 10/25/18 10:59 POC ABG pO2 89 (80-105) 10/25/18 10:59 POC ABG HCO3 21.2 (22-26 mml/L) 10/25/18 10:59 POC ABG Total CO2 23 (23-27mmol/L) 10/25/18 10:59 POC ABG O2 Sat 96 10/25/18 10:59 Abnormal lab findings: Abnormal Labs 10/25/18 10/25/18 10/25/18 10:22 10:22 10:59 RDW 15.7 H [place] % (Auto) 14.2 H [place] # 1.2 H Seg Neutrophils % POC ABG pH 7.278 L POC ABG pCO2 45.4 H Sodium 131 L Potassium Chloride 96.5 L Carbon Dioxide Creatinine 0.5 L Glucose 134 H POC Glucose Total Protein 5.3 L Albumin 3.0 L 10/25/18 10/26/18 10/26/18 20:25 05:07 05:07 RDW 16.3 H [place] % (Auto) 7.8 H [place] # Seg Neutrophils % 77.7 H POC ABG pH POC ABG pCO2 Sodium Potassium 3.5 L Chloride Carbon Dioxide 18 L Creatinine 0.4 L Glucose 127 H POC Glucose 162 H Total Protein 5.6 L Albumin 2.4 L - Diagnostic Findings Chest x-ray: report reviewed (Small to medium pleural effusion.), image reviewed Assessment and Plan 58-year-old female with history of generalized anxiety disorder, depression, hypertension, which is a insufficiency, chronic pain comes in for increasing shortness of breath for the last 6 days. Increased wheezing. Patient not responding to nebulizer treatments at home. Cough or retro-firm mucoid to yellow sputum. No fever or chills. Patient had similar symptoms in June 2017. Patient still smokes a half a pack a day. Counselled to stop smoking. Cough productive of yellow sputum. Drinks alcohol at times. Denies drug abuse. and has no children. Worked in [employer] before disabled or retired. Patient confused and combative. Patients attributing to high dose steroids. Reducing steroid dose to 40 mg I/V q 8 hours. Taper steroids furthur tomorrow. Patient is on high flow O2 8 ltres and O2 saturation 94%. Chest xray reported small to medium pleural effusion. Obtaining ultrasound of chest. - Patient Problems (1) Acute respiratory failure with hypoxia Current Visit: Yes Status: Acute Plan to address problem: Continue high flow O2. Albuterol/atrovent aerosol treatments q 6 hours. Taper I/V solumedrol and switch to budesonide aerosol treatments q 12 hours. Continue cepepime Continue Famotidine. Recommend DVT prophylaxis, S/C Heparin or Lovenox. (2) COPD with acute exacerbation Current Visit: Yes Status: Acute Plan to address problem: ontinue high flow O2. Albuterol/atrovent aerosol treatments q 6 hours. Taper I/V solumedrol and switch to budesonide aerosol treatments q 12 hours. Continue cepepime Continue Famotidine. Recommend DVT prophylaxis, S/C Heparin or Lovenox. PFTs as out patient. (3) Depression Current Visit: Yes Status: Chronic Qualifiers: Depression Type: unspecified Qualified Code(s): F32.9 - Major depressive disorder, single episode, unspecified Plan to address problem: Management as per primary care. (4) Hypertension Current Visit: Yes Status: Chronic Qualifiers: Hypertension type: essential hypertension Qualified Code(s): I10 - Essential (primary) hypertension Plan to address problem: Management as per primary care. (5) Multiple sclerosis Current Visit: Yes Status: Chronic Plan to address problem: Management as per primary care and neurology. (6) Acute bronchitis Current Visit: No Status: Acute Plan to address problem: Patient is on cefepime. (7) HTN (hypertension) Current Visit: No Status: Chronic Qualifiers: Hypertension type: essential hypertension Qualified Code(s): I10 - Essential (primary) hypertension Plan to address problem: Management as per primary care. (8) Tobacco use Current Visit: No Status: Chronic Plan to address problem: Counselled to stop smoking. (9) Pleural effusion, right Current Visit: Yes Status: Acute Plan to address problem: Obtaining ultrasound of chest.
[2018-10-26] MEDS: ELAVIL PO SCH (22:21)
[2018-10-27] MEDS: DDAVP PO SCH ×2 (03:02→21:52)
[2018-10-27] MEDS: SOLU-Medrol IV SCH ×3 (03:15→21:56)
[2018-10-27] MEDS: SODIUM CHLORIDE FLUSH SYRINGE 10 ML IV PRN (03:15)
[2018-10-27] MEDS: MAXIPIME/NS 1 GM/100 ML 1 GM/100 ML BAG IV SCH ×3 (03:15→21:52)
[2018-10-27] MEDS: NORCO 5/325 PO PRN (05:19)
[2018-10-27 05:52] LABS: Hematocrit 33.9 % (30.3-42.9); Hemoglobin 11.4 gm/dl (10.1-14.3); Mean Corpuscular HGB Conc 34 % (30-34); Mean Corpuscular Volume 89 fl (79-97); Platelet Count 355 K/mm3 (140-440); Red Blood Count 3.83 M/mm3 (3.65-5.03); Red Cell Distribution Width 15.6 % (13.2-15.2)
[2018-10-27 06:13] LABS: BUN/Creatinine Ratio 24; Blood Urea Nitrogen 12 mg/dL (7-17); Calcium 8.5 mg/dL (8.4-10.2); Hemolysis Index 12
[2018-10-27] MEDS: XANAX PO PRN ×3 (07:15→21:52)
[2018-10-27 07:47] LABS: Total Cells Counted 100
[2018-10-27 07:48] LABS: Anisocytosis Few; Basophils % (Manual) 0 % (0.0-1.8); Eosinophils % (Manual) 0 % (0.0-4.3); Myelocytes # (Manual) 0.1 K/mm3; Platelet Estimate Consistent w Auto; Target Cells Rare
[2018-10-27] MEDS ORDERED: K-DUR PO NR (07:52)
[2018-10-27] MEDS: LIORESAL PO SCH ×3 (08:46→21:52)
[2018-10-27] MEDS: BRILINTA PO SCH ×2 (09:47→21:52)
[2018-10-27] MEDS: HABITROL TD SCH (09:47)
[2018-10-27] MEDS: COREG PO SCH ×2 (09:47→21:53)
[2018-10-27] MEDS: ABILIFY PO SCH (09:47)
[2018-10-27] MEDS: PEPCID PO SCH ×2 (09:47→21:53)
[2018-10-27] MEDS: BABY ASPIRIN PO SCH (09:47)
[2018-10-27] MEDS: PROVERA PO SCH (09:48)
[2018-10-27] MEDS: SODIUM CHLORIDE FLUSH SYRINGE 10 ML IV SCH ×2 (10:01→21:56)
[2018-10-27] MEDS: DUONEB *Not for PRN Use IH SCH ×4 (10:05→21:29)
[2018-10-27] MEDS: ESTRACE PO SCH (10:30)
--- NOTE | 2018-10-27 10:58 | Progress Note ---
Assessment and Plan Acute respiratory failure with hypoxia COPD with acute exacerbation Right pleural effusion, small based on USS Tobacco use disorder Depression Hypertension Multiple sclerosis Subjective Date of service: 10/27/18 Interval history: Patient is seen today for: Seen and examined at bedside; 24hour events reviewed; nursing and respiratory care staff consulted; no adverse overnight events reported to me; Objective Vital Signs - 12hr 10/26/18 10/27/18 10/27/18 23:39 00:00 05:02 Temperature 98.1 F 98.1 F Pulse Rate 90 93 H 84 Respiratory 18 18 Rate Respiratory 20 Rate [Head] Blood Pressure 137/71 Blood Pressure 128/79 [Left] O2 Sat by Pulse 98 94 Oximetry 10/27/18 10/27/18 10/27/18 05:19 07:59 09:47 Temperature 97.6 F Pulse Rate 74 74 Respiratory 22 18 Rate Respiratory Rate [Head] Blood Pressure 144/82 144/82 Blood Pressure [Left] O2 Sat by Pulse 92 Oximetry Constitutional: no acute distress, alert Eyes: non-icteric ENT: oropharynx moist Neck: supple, no JVD Ascultation: Bilateral: other (Prolonged expiratory phase.) Cardiovascular: regular rate and rhythm Gastrointestinal: normoactive bowel sounds, soft Integumentary: normal Extremities: no cyanosis, no edema Neurologic: unable to assess Psychiatric: anxious (Agitated and confused.), other CBC and BMP: 10/27/18 04:43 10/28/18 05:15 ABG, PT/INR, D-dimer: ABG POC ABG pH 7.278 (7.35-7.45) L 10/25/18 10:59 POC ABG pCO2 45.4 (35-45) H 10/25/18 10:59 POC ABG pO2 89 (80-105) 10/25/18 10:59 POC ABG HCO3 21.2 (22-26 mml/L) 10/25/18 10:59 POC ABG Total CO2 23 (23-27mmol/L) 10/25/18 10:59 POC ABG O2 Sat 96 10/25/18 10:59 Abnormal lab findings: Abnormal Labs 10/25/18 10/25/18 10/25/18 10:22 10:22 10:59 WBC RDW 15.7 H [place] % (Auto) 14.2 H [place] # 1.2 H Seg Neutrophils % Seg Neuts % (Manual) Lymphocytes % (Manual) Seg Neutrophils # Man POC ABG pH 7.278 L POC ABG pCO2 45.4 H Sodium 131 L Potassium Chloride 96.5 L Carbon Dioxide Creatinine 0.5 L Glucose 134 H POC Glucose Total Protein 5.3 L Albumin 3.0 L 10/25/18 10/26/18 10/26/18 20:25 05:07 05:07 WBC RDW 16.3 H [place] % (Auto) 7.8 H [place] # Seg Neutrophils % 77.7 H Seg Neuts % (Manual) Lymphocytes % (Manual) Seg Neutrophils # Man POC ABG pH POC ABG pCO2 Sodium Potassium 3.5 L Chloride Carbon Dioxide 18 L Creatinine 0.4 L Glucose 127 H POC Glucose 162 H Total Protein 5.6 L Albumin 2.4 L 10/26/18 10/27/18 10/27/18 20:35 04:43 04:43 WBC 13.1 H RDW 15.6 H [place] % (Auto) [place] # Seg Neutrophils % Seg Neuts % (Manual) 86.0 H Lymphocytes % (Manual) 9.0 L Seg Neutrophils # Man 11.3 H POC ABG pH POC ABG pCO2 Sodium 146 H D Potassium 3.3 L Chloride 112.7 H Carbon Dioxide 20 L Creatinine 0.5 L Glucose 109 H POC Glucose 163 H Total Protein Albumin 10/27/18 09:03 WBC RDW [place] % (Auto) [place] # Seg Neutrophils % Seg Neuts % (Manual) Lymphocytes % (Manual) Seg Neutrophils # Man POC ABG pH POC ABG pCO2 Sodium Potassium Chloride Carbon Dioxide Creatinine Glucose POC Glucose 124 H Total Protein Albumin
--- NOTE | 2018-10-27 11:34 | Ultrasound Report ---
Ultrasound chest HISTORY: Right pleural effusion FINDINGS: Targeted grayscale ultrasound was performed on the right side of the chest to evaluate for pleural effusion. There is a small free flowing right pleural effusion measuring 39 cc. IMPRESSION: Small right pleural effusion measuring 39 cc. Signer Name: Toby Del Rio Jr, MD Signed: 10/27/2018 11:30 AM Workstation Name: [id number]
--- NOTE | 2018-10-27 14:00 | Progress Note ---
Assessment and Plan Assessment and plan: (1) Acute respiratory failure with hypoxia - Per pulmonology Solu-Medrol was decreased to 40 mg IV 3 times a day - Oxygen support (2) COPD with acute exacerbation; and is being managed according to COPD protocol - 10 showed improvement Pulmonary consult appreciated Delirium; resolved Insomnia; on melatonin Paranoia, depression; and on his evaluated and recommended to continue current medication Disposition; possible discharge tomorrow if continued to improve. Management plan was discussed with the patient and her was in the room during my examination. History Interval history: Patient was seen and evaluated this morning, patient's shortness of breath is getting better. Patient was calm and cooperative Hospitalist Physical - Physical exam Narrative exam: Not in cardiopulmonary distress. The patient appeared well nourished and normally developed. Vital signs as documented. Head exam is unremarkable. No scleral icterus . Neck is without jugular venous distension, thyromegaly, or carotid bruits. Lungs decrease air entry on bibailar area. Cardiac exam reveals regular rate and Rhythm. Abdominal exam reveals normal bowel sounds. Extremities are nonedematous and both femoral and pedal pulses are normal. MOTORCYCLE REPAIRER: Alert and oriented 3. No focal weakness. - Constitutional Vitals: Temp Pulse Resp BP Pulse Ox 97.6 F 76 18 144/82 95 10/27/18 07:59 10/27/18 11:00 10/27/18 07:59 10/27/18 09:47 10/27/18 13:01 General appearance: Present: severe distress Results - Labs CBC & Chem 7: 10/27/18 04:43 10/27/18 04:43 Labs: Laboratory Last Values WBC 13.1 K/mm3 (4.5-11.0) H 10/27/18 04:43 RBC 3.83 M/mm3 (3.65-5.03) 10/27/18 04:43 Hgb 11.4 gm/dl (10.1-14.3) 10/27/18 04:43 Hct 33.9 % (30.3-42.9) 10/27/18 04:43 MCV 89 fl (79-97) 10/27/18 04:43 MCH 30 pg (28-32) 10/27/18 04:43 MCHC 34 % (30-34) 10/27/18 04:43 RDW 15.6 % (13.2-15.2) H 10/27/18 04:43 Plt Count 355 K/mm3 (140-440) 10/27/18 04:43 Lymph % (Auto) 14.3 % (13.4-35.0) 10/26/18 05:07 [place] % (Auto) 7.8 % (0.0-7.3) H 10/26/18 05:07 Eos % (Auto) 0.1 % (0.0-4.3) 10/26/18 05:07 Baso % (Auto) 0.1 % (0.0-1.8) 10/26/18 05:07 Lymph # 1.3 K/mm3 (1.2-5.4) 10/26/18 05:07 [place] # 0.7 K/mm3 (0.0-0.8) 10/26/18 05:07 Eos # 0.0 K/mm3 (0.0-0.4) 10/26/18 05:07 Baso # 0.0 K/mm3 (0.0-0.1) 10/26/18 05:07 Add Manual Diff Complete 10/27/18 04:43 Total Counted 100 10/27/18 04:43 Seg Neutrophils % 77.7 % (40.0-70.0) H 10/26/18 05:07 Seg Neuts % (Manual) 86.0 % (40.0-70.0) H 10/27/18 04:43 0 % 10/27/18 04:43 9.0 % (13.4-35.0) L 10/27/18 04:43 Reactive Lymphs % (Man) 0 % 10/27/18 04:43 4.0 % (0.0-7.3) 10/27/18 04:43 0 % (0.0-4.3) 10/27/18 04:43 0 % (0.0-1.8) 10/27/18 04:43 0 % 10/27/18 04:43 1.0 % 10/27/18 04:43 0 % 10/27/18 04:43 0 % 10/27/18 04:43 Nucleated RBC % Not Reportable 10/27/18 04:43 Seg Neutrophils # 7.1 K/mm3 (1.8-7.7) 10/26/18 05:07 Seg Neutrophils # Man 11.3 K/mm3 (1.8-7.7) H 10/27/18 04:43 Band Neutrophils # 0.0 K/mm3 10/27/18 04:43 1.2 K/mm3 (1.2-5.4) 10/27/18 04:43 Abs React Lymphs (Man) 0.0 K/mm3 10/27/18 04:43 0.5 K/mm3 (0.0-0.8) 10/27/18 04:43 0.0 K/mm3 (0.0-0.4) 10/27/18 04:43 0.0 K/mm3 (0.0-0.1) 10/27/18 04:43 0.0 K/mm3 10/27/18 04:43 0.1 K/mm3 10/27/18 04:43 0.0 K/mm3 10/27/18 04:43 Blast Cells # 0.0 K/mm3 10/27/18 04:43 WBC Morphology Not Reportable 10/27/18 04:43 Hypersegmented Neuts Not Reportable 10/27/18 04:43 Hyposegmented Neuts Not Reportable 10/27/18 04:43 Hypogranular Neuts Not Reportable 10/27/18 04:43 Not Reportable 10/27/18 04:43 Not Reportable 10/27/18 04:43 Not Reportable 10/27/18 04:43 Not Reportable 10/27/18 04:43 Not Reportable 10/27/18 04:43 Not Reportable 10/27/18 04:43 Consistent w auto 10/27/18 04:43 Not Reportable 10/27/18 04:43 Plt Clumps, EDTA Not Reportable 10/27/18 04:43 Not Reportable 10/27/18 04:43 Not Reportable 10/27/18 04:43 Not Reportable 10/27/18 04:43 Plt Morphology Comment Not Reportable 10/27/18 04:43 RBC Morphology Not Reportable 10/27/18 04:43 Dimorphic RBCs Not Reportable 10/27/18 04:43 Not Reportable 10/27/18 04:43 Not Reportable 10/27/18 04:43 Not Reportable 10/27/18 04:43 Few 10/27/18 04:43 Not Reportable 10/27/18 04:43 Not Reportable 10/27/18 04:43 Not Reportable 10/27/18 04:43 Not Reportable 10/27/18 04:43 Not Reportable 10/27/18 04:43 Rare 10/27/18 04:43 Not Reportable 10/27/18 04:43 Not Reportable 10/27/18 04:43 Not Reportable 10/27/18 04:43 Not Reportable 10/27/18 04:43 Not Reportable 10/27/18 04:43 Not Reportable 10/27/18 04:43 Not Reportable 10/27/18 04:43 Not Reportable 10/27/18 04:43 Few 10/27/18 04:43 Acanthocytes (Spur) Few 10/27/18 04:43 [place] Not Reportable 10/27/18 04:43 Not Reportable 10/27/18 04:43 Not Reportable 10/27/18 04:43 Not Reportable 10/27/18 04:43 Not Reportable 10/27/18 04:43 Hem Pathologist Commnt No 10/27/18 04:43 POC ABG pH 7.278 (7.35-7.45) L 10/25/18 10:59 POC ABG pCO2 45.4 (35-45) H 10/25/18 10:59 POC ABG pO2 89 (80-105) 10/25/18 10:59 POC ABG HCO3 21.2 (22-26 mml/L) 10/25/18 10:59 POC ABG Total CO2 23 (23-27mmol/L) 10/25/18 10:59 POC ABG O2 Sat 96 10/25/18 10:59 POC ABG Base Excess -6 ((-2) - (+3)mmol/L) 10/25/18 10:59 50 % 10/25/18 10:59 Sodium 146 mmol/L (137-145) H D 10/27/18 04:43 Potassium 3.3 mmol/L (3.6-5.0) L 10/27/18 04:43 Chloride 112.7 mmol/L (98-107) H 10/27/18 04:43 Carbon Dioxide 20 mmol/L (22-30) L 10/27/18 04:43 17 mmol/L 10/27/18 04:43 BUN 12 mg/dL (7-17) 10/27/18 04:43 0.5 mg/dL (0.7-1.2) L 10/27/18 04:43 Estimated GFR > 60 ml/min 10/27/18 04:43 24 % 10/27/18 04:43 Glucose 109 mg/dL (65-100) H 10/27/18 04:43 POC Glucose 124 (70-105) H 10/27/18 09:03 5.4 % (4-6) 10/25/18 17:20 Lactic Acid 1.50 mmol/L (0.7-2.0) 10/25/18 10:22 Calcium 8.5 mg/dL (8.4-10.2) 10/27/18 04:43 0.40 mg/dL (0.1-1.2) 10/26/18 05:07 AST 24 units/L (5-40) 10/26/18 05:07 ALT 19 units/L (7-56) 10/26/18 05:07 60 units/L (35-129) 10/26/18 05:07 < 0.010 ng/mL (0.00-0.029) 10/25/18 10:22 < 0.010 ng/mL (0.00-0.029) 10/25/18 10:22 NT-Pro-B Natriuret Pep 100.2 pg/mL (0-900) 10/25/18 10:22 5.6 g/dL (6.3-8.2) L 10/26/18 05:07 2.4 g/dL (3.9-5) L 10/26/18 05:07 0.8 % 10/26/18 05:07 Straw (Yellow) 10/26/18 10:57 Clear (Clear) 10/26/18 10:57 7.0 (5.0-7.0) 10/26/18 10:57 Ur Specific [place] 1.005 (1.003-1.030) 10/26/18 10:57 <15 mg/dl mg/dL (Negative) 10/26/18 10:57 Neg mg/dL (Negative) 10/26/18 10:57 Neg mg/dL (Negative) 10/26/18 10:57 Neg (Negative) 10/26/18 10:57 Neg (Negative) 10/26/18 10:57 Neg (Negative) 10/26/18 10:57 < 2.0 mg/dL (<2.0) 10/26/18 10:57 Ur Leukocyte Esterase Tr (Negative) 10/26/18 10:57 1.0 /HPF (0.0-6.0) 10/26/18 10:57 3.0 /HPF (0.0-6.0) 10/26/18 10:57 U Epithel Cells (Auto) < 1.0 /HPF (0-13.0) 10/26/18 10:57 1+ /HPF (Negative) 10/26/18 10:57 Active Medications - Current Medications Current Medications: Generic Name Dose Route Start Last Admin Trade Name Freq PRN Reason Stop Dose Admin Acetaminophen 650 mg 10/25/18 16:46 Tylenol PO Q4H PRN Pain MILD(1-3)/Fever >100.5/LUQUE Acetaminophen/Hydrocodone Bitart 1 each 10/25/18 16:43 10/27/18 05:19 [place] 5/325 PO 1 each BID PRN Administration Pain Albuterol 2.5 mg 10/25/18 16:49 Proventil IH Q4HRT PRN Shortness Of Breath Albuterol/Ipratropium 1 ampul 10/27/18 14:00 10/27/18 13:37 Duoneb *Not For Prn Use* IH 1 ampul TIDRT ROBERTH Administration Alprazolam 0.5 mg 10/25/18 16:43 10/27/18 07:15 Xanax PO 0.5 mg TID PRN Administration Anxiety Amitriptyline HCl 150 mg 10/25/18 22:00 10/26/18 22:21 Elavil PO 150 mg QHS ROBERTH Administration Aripiprazole 10 mg 10/26/18 11:00 10/27/18 09:47 Abilify PO 10 mg QDAY ROBERTH Administration Aspirin 81 mg 10/25/18 18:00 10/27/18 09:47 Baby Aspirin PO 81 mg QDAY ROBERTH Administration Atorvastatin Calcium 40 mg 10/25/18 22:00 10/26/18 22:12 Lipitor PO 40 mg QHS ROBERTH Administration Baclofen 20 mg 10/25/18 20:00 10/27/18 08:46 Lioresal PO 20 mg TID ROBERTH Administration Carvedilol 3.125 mg 10/25/18 22:00 10/27/18 09:47 Coreg PO 3.125 mg BID ROBERTH Administration Desmopressin Acetate 0.2 mg 10/25/18 22:00 10/27/18 03:02 Ddavp PO Not Given HS ROBERTH Estradiol 0.5 mg 10/25/18 20:00 10/27/18 10:30 Estrace PO 0.5 mg QDAY ROBERTH Administration Famotidine 20 mg 10/26/18 10:00 10/27/18 09:47 Pepcid PO 20 mg BID ROBERTH Administration Gabapentin 600 mg 10/26/18 11:00 Neurontin PO QID PRN Pain, Moderate (4-6) Hydromorphone HCl 0.5 mg 10/25/18 16:46 10/26/18 18:20 Dilaudid IV 0.5 mg Q3H PRN Administration Pain , Severe (7-10) Cefepime HCl 1 gm in 100 mls @ 200 mls/hr 10/25/18 11:20 10/27/18 11:18 Maxipime/Ns 1 Gm/100 Ml IV 200 mls/hr Q8H ROBERTH Administration Protocol Medroxyprogesterone Acetate 2.5 mg 10/25/18 20:00 10/27/18 09:48 Provera PO 2.5 mg DAILY ROBERTH Administration Methylprednisolone Sodium Succinate 40 mg 10/26/18 12:00 10/27/18 11:23 Solu-Medrol IV 40 mg Q8H ROBERTH Administration Nicotine 14 mg 10/26/18 10:00 10/27/18 09:47 Habitrol TD 14 mg QDAY ROBERTH Administration Ondansetron HCl 4 mg 10/25/18 16:46 Zofran IV Q8H PRN Nausea And Vomiting Promethazine HCl 25 mg 10/25/18 16:43 Phenergan PO TID PRN Nausea Sodium Chloride 10 ml 10/25/18 22:00 10/27/18 10:01 Sodium Chloride Flush Syringe 10 Ml IV 10 ml BID ROBERTH Administration Sodium Chloride 10 ml 10/25/18 16:46 10/27/18 03:15 Sodium Chloride Flush Syringe 10 Ml IV 10 ml PRN PRN Administration LINE FLUSH Ticagrelor 90 mg 10/25/18 22:00 10/27/18 09:47 Brilinta PO 90 mg BID ROBERTH Administration
--- NOTE | 2018-10-27 14:39 | Consultation ---
History of Present Illness - Reason for Consult Consult date: 10/27/18 Reason for consult: Mental Health Evaluation Requesting physician: LINDA ANDERSON - Chief Complaint Chief complaint: "I haven't been sleeping well" - History of Present Psychiatric Illness 58 y.o. whie female who presented to the ER for SOB. Psychiatry was consulted for possible paranoia and depression. Today the patient was calm and cooperative during the assessment. The patient stated that she is seen by her neurologist Dr Soto who manage all her medications along with her MS. She was asked about her mental health, she stated that she has a hx of depression and take Elavil and Abilify. She could not elaborate about what happened yesterday reference being paranoid. She stated that her sleep have been "off" since being in the hospital. Per collateral information from her Deondre Morales, who was at the bedside, he stated that his have not been sleeping well since her admission. He confirmed that the patient is seen is by her neurologist for her medical needs. He stated that his 's behavior yesterday wasn't her baseline, but today she's better. The patient denies Si/HI's and AVH's. She denies recrea tional drug use and alcohol consumption (etoh). Medications and Allergies Allergies Allergy/AdvReac Type Severity Reaction Status Date / Time ciprofloxacin Allergy Itching Verified 10/25/18 09:52 Penicillins Allergy Unknown Verified 06/03/15 21:45 oxycodone AdvReac Itching Verified 06/03/15 21:45 sulfur dioxide AdvReac Itching Verified 06/03/15 21:47 Home Medications Medication Instructions Recorded Confirmed Last Taken Type ALPRAZolam [Xanax TAB] 0.5 mg PO TID PRN 06/03/15 10/25/18 10/25/18 History Amitriptyline [Elavil] 150 mg PO QHS 06/03/15 10/25/18 10/24/18 History Aspirin [Aspirin BABY CHEW TAB] 81 mg PO QDAY #30 tab.chew 06/05/15 10/25/18 10/25/18 Rx Carvedilol [Coreg] 3.125 mg PO BID #60 tablet 06/05/15 10/25/18 10/25/18 Rx Ticagrelor [Brilinta] 90 mg PO BID #60 tablet 06/05/15 10/25/18 10/25/18 Rx Atorvastatin Calcium [Lipitor] 80 mg PO DAILY 06/28/17 10/25/18 10/24/18 History Baclofen [Lioresal] 20 mg PO TID 06/28/17 10/25/18 10/25/18 History 20 mg Desmopressin Acetate [Ddavp] 0.2 mg PO HS 06/28/17 10/25/18 10/24/18 History Estradiol 0.5 mg PO DAILY 06/28/17 10/25/18 10/25/18 History Gabapentin [Neurontin] 600 mg PO QID PRN 06/28/17 10/25/18 10/25/18 History HYDROcodone/APAP 5-325 [[place] 1 each PO BID PRN 06/28/17 10/25/18 10/25/18 History 5-325 mg TAB] Promethazine [Phenergan] 25 mg PO TID PRN 06/28/17 10/25/18 Unknown History medroxyPROGESTERone ACETATE 2.5 mg PO DAILY 06/28/17 10/25/18 10/25/18 History [Provera] ARIPiprazole [Abilify TAB] 10 mg PO DAILY 10/25/18 10/25/18 10/25/18 History Interferon Beta-1A/Albumin [Rebif 44 mcg SQ 3XW 10/25/18 10/25/18 10/25/18 History 44 Mcg/0.5 ml Syringe] Sennosides [Senokot] 17.2 mg PO HS 10/25/18 10/25/18 10/24/18 History Nicotine [Habitrol] 14 mg TD DAILY #7 patch 10/28/18 Unknown Rx Prednisone [predniSONE 5 mg (6-Day 5 mg PO .TAPER #1 tab.ds.pk 10/28/18 Unknown Rx Pack, 21 Tabs)] cefUROXime [Ceftin] 500 mg PO Q12H #20 tablet 10/28/18 Unknown Rx Active Meds: Active Medications Acetaminophen (Tylenol) 650 mg PO Q4H PRN PRN Reason: Pain MILD(1-3)/Fever >100.5/LUQUE Acetaminophen/Hydrocodone Bitart ([place] 5/325) 1 each PO BID PRN PRN Reason: Pain Last Admin: 10/27/18 05:19 Dose: 1 each Documented by: Albuterol (Proventil) 2.5 mg IH Q4HRT PRN PRN Reason: Shortness Of Breath Albuterol/Ipratropium (Duoneb *Not For Prn Use*) 1 ampul IH TIDRT [facility] Last Admin: 10/27/18 13:37 Dose: 1 ampul Documented by: Alprazolam (Xanax) 0.5 mg PO TID PRN PRN Reason: Anxiety Last Admin: 10/27/18 07:15 Dose: 0.5 mg Documented by: Amitriptyline HCl (Elavil) 150 mg PO QHS [facility] Last Admin: 10/26/18 22:21 Dose: 150 mg Documented by: Aripiprazole (Abilify) 10 mg PO QDAY [facility] Last Admin: 10/27/18 09:47 Dose: 10 mg Documented by: Aspirin (Baby Aspirin) 81 mg PO QDAY [facility] Last Admin: 10/27/18 09:47 Dose: 81 mg Documented by: Atorvastatin Calcium (Lipitor) 40 mg PO QHS [facility] Last Admin: 10/26/18 22:12 Dose: 40 mg Documented by: Baclofen (Lioresal) 20 mg PO TID [facility] Last Admin: 10/27/18 14:34 Dose: 20 mg Documented by: Carvedilol (Coreg) 3.125 mg PO BID [facility] Last Admin: 10/27/18 09:47 Dose: 3.125 mg Documented by: Desmopressin Acetate (Ddavp) 0.2 mg PO [facility] Last Admin: 10/27/18 03:02 Dose: Not Given Documented by: Estradiol (Estrace) 0.5 mg PO QDAY [facility] Last Admin: 10/27/18 10:30 Dose: 0.5 mg Documented by: Famotidine (Pepcid) 20 mg PO BID [facility] Last Admin: 10/27/18 09:47 Dose: 20 mg Documented by: Gabapentin (Neurontin) 600 mg PO QID PRN PRN Reason: Pain, Moderate (4-6) Hydromorphone HCl (Dilaudid) 0.5 mg IV Q3H PRN PRN Reason: Pain , Severe (7-10) Last Admin: 10/26/18 18:20 Dose: 0.5 mg Documented by: Cefepime HCl (Maxipime/Ns 1 Gm/100 Ml) 1 gm in 100 mls @ 200 mls/hr IV Q8H [facility]; Protocol Last Admin: 10/27/18 11:18 Dose: 200 mls/hr Documented by: Medroxyprogesterone Acetate (Provera) 2.5 mg PO DAILY [facility] Last Admin: 10/27/18 09:48 Dose: 2.5 mg Documented by: Methylprednisolone Sodium Succinate (Solu-Medrol) 40 mg IV Q8H [facility] Last Admin: 10/27/18 11:23 Dose: 40 mg Documented by: Nicotine (Habitrol) 14 mg TD QDAY [facility] Last Admin: 10/27/18 09:47 Dose: 14 mg Documented by: Ondansetron HCl (Zofran) 4 mg IV Q8H PRN PRN Reason: Nausea And Vomiting Promethazine HCl (Phenergan) 25 mg PO TID PRN PRN Reason: Nausea Sodium Chloride (Sodium Chloride Flush Syringe 10 Ml) 10 ml IV BID [facility] Last Admin: 10/27/18 10:01 Dose: 10 ml Documented by: Sodium Chloride (Sodium Chloride Flush Syringe 10 Ml) 10 ml IV PRN PRN PRN Reason: LINE FLUSH Last Admin: 10/27/18 03:15 Dose: 10 ml Documented by: Ticagrelor (Brilinta) 90 mg PO BID [facility] Last Admin: 10/27/18 09:47 Dose: 90 mg Documented by: Past psychiatric history - Past Medical History Past Medical History: other (MS ) Past Surgical History: No surgical history - past Psychiatric treatment and history psychiatric treatment history: Hx of mood do per the patient. Denies a fam psy hx. - Social History Social history: lives with family Mental Status Exam - Vital signs Last Vital Signs Temp 97.6 F 10/27/18 07:59 Pulse 76 10/27/18 11:00 Resp 18 10/27/18 07:59 BP 144/82 10/27/18 09:47 Pulse Ox 95 10/27/18 13:01 - Exam Narrative exam: MSE: Appearance: calm, cooperative Behavior: regular eye contact Speech: regular rate with loud tone Mood:: "okay" Affect: congruent to mood Thought Process: circumstantial Thought Content: denies SI/HI's and AVH's Motor Activity: ambulatory Cognition: A/O x3 Insight: fair Judgment: fair Results Result Diagrams: 10/27/18 04:43 10/28/18 05:15 Abnormal lab results 10/26/18 10/27/18 10/27/18 Range/Units 20:35 04:43 04:43 WBC 13.1 H (4.5-11.0) K/mm3 RDW 15.6 H (13.2-15.2) % Seg Neuts % (Manual) 86.0 H (40.0-70.0) % Lymphocytes % (Manual) 9.0 L (13.4-35.0) % Seg Neutrophils # Man 11.3 H (1.8-7.7) K/mm3 POC ABG pO2 (80-105) Sodium 146 H D (137-145) mmol/L Potassium 3.3 L (3.6-5.0) mmol/L Chloride 112.7 H (98-107) mmol/L Carbon Dioxide 20 L (22-30) mmol/L Creatinine 0.5 L (0.7-1.2) mg/dL Glucose 109 H (65-100) mg/dL POC Glucose 163 H (70-105) 10/27/18 10/27/18 Range/Units 09:03 13:24 WBC (4.5-11.0) K/mm3 RDW (13.2-15.2) % Seg Neuts % (Manual) (40.0-70.0) % Lymphocytes % (Manual) (13.4-35.0) % Seg Neutrophils # Man (1.8-7.7) K/mm3 POC ABG pO2 70 L (80-105) Sodium (137-145) mmol/L Potassium (3.6-5.0) mmol/L Chloride (98-107) mmol/L Carbon Dioxide (22-30) mmol/L Creatinine (0.7-1.2) mg/dL Glucose (65-100) mg/dL POC Glucose 124 H (70-105) All other labs normal. Assessment and Plan Assessment and plan: Impression: Hx of Mood DO. No overt psychosis with the patient. Sleep Deprivation. Today the patient was calm and cooperative during the assessment. Recommendation/Plan: Continue home medication Elavil 150 mg PO HS for depression and Abilify 10 mg PO daily for mood. Start Melatonin 5 mg Po HS PRN for sleep. Discussed possible suicidality/medication induced lizbeth with the patient reference Elavil, he verbalized understanding. Discussed possible metabolic side effects of Abilify with the patient, she verbalized understanding. Psy sign off. Dispo: The patient can follow up with her Neurologist Dr Soto for psy medication mgmt. Staffed with Dr Isela Champagne.
[2018-10-27] MEDS: TYLENOL PO PRN (15:44)
[2018-10-27] MEDS ORDERED: MILK OF MAGNESIA PO PRN (15:51)
[2018-10-27] MEDS: ELAVIL PO SCH (21:53)
[2018-10-27] MEDS ORDERED: MELATONIN PO PRN (22:00)
[2018-10-28] MEDS: XANAX PO PRN (04:29)
[2018-10-28] MEDS: SOLU-Medrol IV SCH (04:29)
[2018-10-28] MEDS: TYLENOL PO PRN (04:29)
[2018-10-28] MEDS: SODIUM CHLORIDE FLUSH SYRINGE 10 ML IV PRN (04:30)
[2018-10-28] MEDS: MAXIPIME/NS 1 GM/100 ML 1 GM/100 ML BAG IV SCH ×2 (04:48→11:38)
[2018-10-28 05:54] LABS: BUN/Creatinine Ratio 26; Blood Urea Nitrogen 13 mg/dL (7-17); Hemolysis Index 7
[2018-10-28] MEDS: LIORESAL PO SCH ×2 (08:57→14:05)
[2018-10-28] MEDS ORDERED: DELTASONE PO SCH (10:00)
--- NOTE | 2018-10-28 10:08 | Discharge Summary ---
Providers - Providers Date of Admission: 10/25/18 11:40 Date of discharge: 10/28/18 Attending physician: LINDA ANDERSON MD 10/25/18 16:46 Consult to Physician [CONS] Routine Comment: Consulting Provider: TORO DUNCAN Physician Instructions: Reason For Exam: COPD exacerbation and acute respiratory failure 10/26/18 14:33 Consult to Mental Health [CONS] Routine Reason For Exam: Paranoia, depression Place consult to:: mental health Notified:: Mario FOWLER Comment:: Patient seen by mental health bolt loader Rosa Pablo 10/26/18 @ 1752 Primary care physician: CLASSROOM TECHNOLOGY TECHNICIAN Hospitalization Reason for admission: acute hypoxic respiratory failure, COPD exacerbation Condition: Stable Hospital course: 58-year-old female with history of generalized anxiety disorder, depression, hypertension, which is a insufficiency, chronic pain comes in for increasing shortness of breath for the last 6 days. Increased wheezing. Patient not responding to nebulizer treatments at home. Cough productive of mucoid to yellow sputum. No fever or chills. Patient had similar symptoms in June 2017. Patient still smokes a half a pack a day. Cough productive of yellow sputum. Patient was admitted to the floor and was treated according to COPD exacerbation. Patient showed improvement respiratory mata but the patient has delirium likely due to high dose steroid and decreased steroid dose patient showed some improvement. patient discharged home in a stable conditions. Patient was hemodynamically stable and appropriate medications were given at the time of discharge. Disposition: DC-01 TO HOME OR SELFCARE Time spent for discharge: 32 minutes - Discharge Diagnoses (1) Acute respiratory failure with hypoxia Status: Acute (2) Bronchitis Status: Acute (3) COPD with acute exacerbation Status: Acute (4) Pleural effusion, right Status: Acute (5) Depression Status: Chronic Qualifiers: Depression Type: unspecified Qualified Code(s): F32.9 - Major depressive disorder, single episode, unspecified (6) Hypertension Status: Chronic Qualifiers: Hypertension type: essential hypertension Qualified Code(s): I10 - Essential (primary) hypertension (7) Peripheral neuropathy Status: Chronic Qualifiers: Peripheral neuropathy type: polyneuropathy, unspecified Qualified Code(s): G62.9 - Polyneuropathy, unspecified Core Measure Documentation - Palliative Care Palliative Care/ Comfort Measures: Not Applicable - Core Measures Any of the following diagnoses?: none Exam - Physical Exam Narrative exam: Not in cardiopulmonary distress. The patient appeared well nourished and normally developed. Vital signs as documented. Head exam is unremarkable. No scleral icterus . Neck is without jugular venous distension, thyromegaly, or carotid bruits. Lungs CTAB. Cardiac exam reveals regular rate and Rhythm. Abdominal exam reveals normal bowel sounds. Extremities are nonedematous and both femoral and pedal pulses are normal. EAR NOSE THROAT PHYSICIAN: Alert and oriented 3. No focal weakness. - Constitutional Vitals: Temp Pulse Resp BP Pulse Ox 98.0 F 89 20 142/81 92 10/28/18 04:18 10/28/18 06:00 10/28/18 04:29 10/28/18 04:18 10/28/18 04:18 Plan Activity: no restrictions Weight Bearing Status: Full Weight Bearing Diet: low cholesterol, low salt Follow up with: PRIMARY CARE, [Primary Care Provider] - 3-5 Days Prescriptions: cefUROXime [Ceftin] 500 mg PO Q12H #20 tablet Nicotine [Habitrol] 14 mg TD DAILY #7 patch Prednisone [predniSONE 5 mg (6-Day Pack, 21 Tabs)] 5 mg PO .TAPER #1 tab.ds.pk
[2018-10-28] MEDS: PEPCID PO SCH (10:16)
[2018-10-28] MEDS: BABY ASPIRIN PO SCH (10:16)
[2018-10-28] MEDS: BRILINTA PO SCH (10:16)
[2018-10-28] MEDS: PROVERA PO SCH (10:17)
[2018-10-28] MEDS: ESTRACE PO SCH (10:17)
[2018-10-28] MEDS: ABILIFY PO SCH (10:17)
[2018-10-28] MEDS: HABITROL TD SCH (10:18)
[2018-10-28 10:19] VITALS: BP 140/80
[2018-10-28] MEDS: SODIUM CHLORIDE FLUSH SYRINGE 10 ML IV SCH (10:19)
[2018-10-28] MEDS: COREG PO SCH (10:19)
--- NOTE | 2018-10-28 11:58 | Progress Note ---
Assessment and Plan Acute respiratory failure with hypoxia COPD with acute exacerbation Right pleural effusion, small based on USS Tobacco use disorder Depression Hypertension Multiple sclerosis Subjective Date of service: 10/28/18 Interval history: Patient is seen today for: Seen and examined at bedside; 24hour events reviewed; nursing and respiratory care staff consulted; no adverse overnight events reported to me; Objective - Exam Narrative Exam: Not in cardiopulmonary distress. The patient appeared well nourished and normally developed. Vital signs as documented. Head exam is unremarkable. No scleral icterus . Neck is without jugular venous distension, thyromegaly, or carotid bruits. Lungs CTAB. Cardiac exam reveals regular rate and Rhythm. Abdominal exam reveals normal bowel sounds. Extremities are nonedematous and both femoral and pedal pulses are normal. [employer]ING [employer]: Alert and oriented . No focal weakness. Vital Signs - 12hr 10/28/18 10/28/18 10/28/18 00:21 04:18 04:29 Temperature 98.0 F 98.0 F Pulse Rate 91 H 89 Respiratory 20 18 20 Rate Blood Pressure 149/83 142/81 O2 Sat by Pulse 95 92 Oximetry 10/28/18 10/28/18 10/28/18 06:00 08:03 10:19 Temperature 98.3 F Pulse Rate 89 74 74 Respiratory 18 Rate Blood Pressure 140/80 140/80 O2 Sat by Pulse 96 Oximetry Constitutional: no acute distress, alert Eyes: non-icteric ENT: oropharynx moist Neck: supple, no JVD Ascultation: Bilateral: other (Prolonged expiratory phase.) Cardiovascular: regular rate and rhythm Gastrointestinal: normoactive bowel sounds, soft Integumentary: normal Extremities: no cyanosis, no edema Neurologic: unable to assess Psychiatric: anxious (Agitated and confused.), other CBC and BMP: 10/27/18 04:43 10/28/18 05:15 ABG, PT/INR, D-dimer: ABG POC ABG pH 7.437 (7.35-7.45) 10/27/18 13:24 POC ABG pO2 70 (80-105) L 10/27/18 13:24 POC ABG HCO3 17.3 (22-26 mml/L) 10/27/18 13:24 POC ABG Total CO2 18 (23-27mmol/L) 10/27/18 13:24 POC ABG O2 Sat 95 10/27/18 13:24 Abnormal lab findings: Abnormal Labs 10/25/18 10/25/18 10/25/18 10:22 10:22 10:59 WBC RDW 15.7 H [place] % (Auto) 14.2 H [place] # 1.2 H Seg Neutrophils % Seg Neuts % (Manual) Lymphocytes % (Manual) Seg Neutrophils # Man POC ABG pH 7.278 L POC ABG pCO2 45.4 H POC ABG pO2 Sodium 131 L Potassium Chloride 96.5 L Carbon Dioxide Creatinine 0.5 L Glucose 134 H POC Glucose Calcium Total Protein 5.3 L Albumin 3.0 L 10/25/18 10/26/18 10/26/18 20:25 05:07 05:07 WBC RDW 16.3 H [place] % (Auto) 7.8 H [place] # Seg Neutrophils % 77.7 H Seg Neuts % (Manual) Lymphocytes % (Manual) Seg Neutrophils # Man POC ABG pH POC ABG pCO2 POC ABG pO2 Sodium Potassium 3.5 L Chloride Carbon Dioxide 18 L Creatinine 0.4 L Glucose 127 H POC Glucose 162 H Calcium Total Protein 5.6 L Albumin 2.4 L 10/26/18 10/27/18 10/27/18 20:35 04:43 04:43 WBC 13.1 H RDW 15.6 H [place] % (Auto) [place] # Seg Neutrophils % Seg Neuts % (Manual) 86.0 H Lymphocytes % (Manual) 9.0 L Seg Neutrophils # Man 11.3 H POC ABG pH POC ABG pCO2 POC ABG pO2 Sodium 146 H D Potassium 3.3 L Chloride 112.7 H Carbon Dioxide 20 L Creatinine 0.5 L Glucose 109 H POC Glucose 163 H Calcium Total Protein Albumin 10/27/18 10/27/18 10/28/18 09:03 13:24 05:15 WBC RDW [place] % (Auto) [place] # Seg Neutrophils % Seg Neuts % (Manual) Lymphocytes % (Manual) Seg Neutrophils # Man POC ABG pH POC ABG pCO2 POC ABG pO2 70 L Sodium Potassium Chloride Carbon Dioxide Creatinine 0.5 L Glucose 138 H POC Glucose 124 H Calcium 8.0 L Total Protein Albumin 10/28/18 08:32 WBC RDW [place] % (Auto) [place] # Seg Neutrophils % Seg Neuts % (Manual) Lymphocytes % (Manual) Seg Neutrophils # Man POC ABG pH POC ABG pCO2 POC ABG pO2 Sodium Potassium Chloride Carbon Dioxide Creatinine Glucose POC Glucose 135 H Calcium Total Protein Albumin
[2018-10-28] MEDS: DUONEB *Not for PRN Use IH SCH ×2 (13:42→13:47)
== END 2018-10-28 14:40 | disposition home or self-care (01) | DRG 189 ==
LOC: ED 09:41 → 4A 11:40
PROVIDERS: ADMIT Internal Medicine; ATTEND Internal Medicine
PROC: 4A033R1 Measurement of Arterial Saturation, Peripheral, Percutaneous Approach (ICD-10-PCS; principal; 2018-10-25)
DX: J96.01 Acute respiratory failure with hypoxia (principal); J44.1 Chronic obstructive pulmonary disease with (acute) exacerbation; J90 Pleural effusion, not elsewhere classified; J20.9 Acute bronchitis, unspecified; I10 Essential (primary) hypertension; F32.9 Major depressive disorder, single episode, unspecified; F41.1 Generalized anxiety disorder; G89.29 Other chronic pain; G35 Multiple sclerosis; G62.9 Polyneuropathy, unspecified; E78.2 Mixed hyperlipidemia; J44.9 Chronic obstructive pulmonary disease, unspecified; R41.0 Disorientation, unspecified; I25.10 Atherosclerotic heart disease of native coronary artery without angina pectoris; F17.210 Nicotine dependence, cigarettes, uncomplicated; Z71.6 Tobacco abuse counseling; Z79.01 Long term (current) use of anticoagulants; Z79.899 Other long term (current) drug therapy; Z79.82 Long term (current) use of aspirin; Z88.1 Allergy status to other antibiotic agents; Z88.8 Allergy status to other drugs, medicaments and biological substances; Z88.0 Allergy status to penicillin; Z95.5 Presence of coronary angioplasty implant and graft; Z82.49 Family history of ischemic heart disease and other diseases of the circulatory system; I25.2 Old myocardial infarction
CPT/HCPCS: 36415; 36600; 71045; 76604; 80048; 80053; 81001; 82140; 82803; 82962; 83036; 83880; 84484; 85007; 85025; 87040; 93005; 93010; 94640; 94644; 94760; 96360; 99406; G0378; A9270-GY; J0692; J1170; J2920; J2930; J7030; J7512